=== PATIENT | female | born 2000 | race Two or more races ===

== ENCOUNTER → 2024-04-13 | Outpatient (CLI) | payer OTHER | END | disposition home or self-care (01) | LOC: PRENATAL 12:42 | PROVIDERS: ATTEND Obstetrics & Gynecology Maternal & Fetal Medicine | DX: O35.9XX0 Maternal care for (suspected) fetal abnormality and damage, unspecified, not applicable or unspecified (principal); O35.3XX0 Maternal care for (suspected) damage to fetus from viral disease in mother, not applicable or unspecified; O44.02 Complete placenta previa NOS or without hemorrhage, second trimester; O99.891 Other specified diseases and conditions complicating pregnancy; Z3A.20 20 weeks gestation of pregnancy ==

== ENCOUNTER 2024-05-10 17:46 | Inpatient (IN) | payer OTHER ==
[~2024-05-10] VITALS: Ht 170.2 cm; Wt 94.3 kg
[2024-05-10] MEDS ORDERED: ACETAMINOPHEN 500 MG GEL..CAP PO PRN (18:30)
[2024-05-10] MEDS ORDERED: RINGERS SOLUTION,LACTATED 1,000 ML IV SCH (18:30)
[2024-05-10 18:47] LABS: URINE APPEARANCE Clear; URINE BILIRRUBIN Small (NEGATIVE); URINE BLOOD Negative; URINE COLOR Dark Yellow; URINE GLUCOSE Negative (NEGATIVE); URINE KETONE 15 (NEGATIVE); URINE LEUKOCYTE Trace; URINE NITRATE Negative
[2024-05-10 18:48] LABS: URINE BACTERIA 1320.3 uL (0.0-1933); URINE EPITHELIAL CELLS 18.2 uL (0.0-38.8); URINE RBC 7.6 uL (0.0-20.8); URINE WBC 34.1 uL (0.0-23.2)
[2024-05-10 18:52] LABS: URINE PROTEIN 100 (NEGATIVE)
[2024-05-10] MEDS ORDERED: PRENATAL + DHA1 EAC1 PO (19:02)
[2024-05-10 19:08] LABS: PLATELET COUNT 237 K/uL (150-450); RED BLOOD COUNT 2.74 M/uL (4.00-6.00)
[2024-05-10 19:10] LABS: MEAN CORPUSCULAR HEMOGLOBIN 28.1 pg (27.00-32.0); RED CELL DISTRIBUTION WIDTH 25.8 % (11.5-14.5)
[2024-05-10 19:17] LABS: ALBUMIN 3.7 gm/dL (3.4-5.0); BILIRUBIN TOTAL 4.65 mg/dL (0.3-1.2); CALCIUM 9.3 mg/dL (8.5-10.1); CREATININE SERUM 0.49 mg/dL (0.55-1.02); GFR 153.88; GLOBULINA 3.4 G/DL (2.4-3.5); HEMATOCRIT 20.8 % (36.0-45.00); HEMOGLOBIN 7.7 g/dL (12.0-15.00); POTASSIUM 3.37 mEq/L (3.5-5.1); TOTAL PROTEIN 7.1 gm/dL (6.4-8.2)
[2024-05-10] MEDS ORDERED: SODIUM CHLORIDE 0.45 % 1,000 ML IV SCH (20:30)
[2024-05-11 07:38] LABS: MEAN CELL VOLUME 74.1 fL (80.00-100.00); MEAN CORPUSCULAR HGB CONC 37.4 g/dl (32.0-36.0); PLATELET COUNT 209 K/uL (150-450); RED BLOOD COUNT 2.44 M/uL (4.00-6.00)
[2024-05-11 07:48] LABS: MEAN CORPUSCULAR HEMOGLOBIN 27.8 pg (27.00-32.0); RED CELL DISTRIBUTION WIDTH 26.1 % (11.5-14.5)
[2024-05-11 07:52] LABS: HEMATOCRIT 18.1 % (36.0-45.00); HEMOGLOBIN 6.8 g/dL (12.0-15.00)
[2024-05-11 08:03] LABS: ALBUMIN 3.2 gm/dL (3.4-5.0); BILIRUBIN TOTAL 3.77 mg/dL (0.3-1.2); CALCIUM 8.6 mg/dL (8.5-10.1); GFR 281.86; GLOBULINA 3.2 G/DL (2.4-3.5); POTASSIUM 3.1 mEq/L (3.5-5.1); TOTAL PROTEIN 6.4 gm/dL (6.4-8.2)
[2024-05-11 08:04] LABS: CREATININE SERUM 0.29 mg/dL (0.55-1.02)
[2024-05-11] MEDS ORDERED: PAXLOVID PO SCH (09:00)
[2024-05-11] MEDS ORDERED: PNV,CALCIUM 72/IRON/FOLIC ACID 1 TAB TABLET PO SCH (09:00)
[2024-05-11] MEDS ORDERED: IRON/V.C/V.B12/FOLIC A/VIT. E 1 CAPL CAPLET PO SCH (09:00)
[2024-05-12 05:17] LABS: HEMATOCRIT 27.3 % (36.0-45.00); MEAN CELL VOLUME 77.9 fL (80.00-100.00); MEAN CORPUSCULAR HEMOGLOBIN 28.4 pg (27.00-32.0); MEAN CORPUSCULAR HGB CONC 36.7 g/dl (32.0-36.0); PLATELET COUNT 257 K/uL (150-450); RED BLOOD COUNT 3.51 M/uL (4.00-6.00); RED CELL DISTRIBUTION WIDTH 24.2 % (11.5-14.5)
== END 2024-05-12 16:52 | disposition home or self-care (01) | DRG 831 ==
LOC: OBS/DEL 17:46 → LDR 05-11 13:04 → OBS/DEL 05-11 13:04 → LDR 05-12 16:52
PROVIDERS: ADMIT Obstetrics & Gynecology; ATTEND Obstetrics & Gynecology
PROC: 4A1HXCZ Monitoring of Products of Conception, Cardiac Rate, External Approach (ICD-10-PCS; principal; 2024-05-11)
PROC: 30233N1 Transfusion of Nonautologous Red Blood Cells into Peripheral Vein, Percutaneous Approach (ICD-10-PCS; 2024-05-11)
PROC: BY4CZZZ Ultrasonography of Second Trimester, Single Fetus (ICD-10-PCS; 2024-05-11)
DX: O99.012 Anemia complicating pregnancy, second trimester (principal); U07.1 COVID-19; O98.512 Other viral diseases complicating pregnancy, second trimester; D64.9 Anemia, unspecified; Z3A.24 24 weeks gestation of pregnancy; Z86.2 Personal history of diseases of the blood and blood-forming organs and certain disorders involving the immune mechanism

== ENCOUNTER → 2024-06-08 13:49 | Outpatient (CLI) | payer OTHER ==
[~2024-06-08 13:49] MED LIST: PRENATAL + DHA1 EAC1 PO
== END | disposition home or self-care (01) ==
LOC: PRENATAL 13:49
PROVIDERS: ATTEND Obstetrics & Gynecology Maternal & Fetal Medicine
DX: O26.849 Uterine size-date discrepancy, unspecified trimester (principal); O99.891 Other specified diseases and conditions complicating pregnancy; O99.019 Anemia complicating pregnancy, unspecified trimester; Z3A.28 28 weeks gestation of pregnancy

== ENCOUNTER → 2024-07-20 | Outpatient (CLI) | payer OTHER | END | disposition home or self-care (01) | LOC: PRENATAL 13:18 | PROVIDERS: ATTEND Obstetrics & Gynecology Maternal & Fetal Medicine | DX: O26.849 Uterine size-date discrepancy, unspecified trimester (principal); O36.8199 Decreased fetal movements, unspecified trimester, other fetus; O99.891 Other specified diseases and conditions complicating pregnancy; Z3A.34 34 weeks gestation of pregnancy ==

== ENCOUNTER → 2024-07-24 08:08 | Outpatient (CLI) | payer OTHER ==
[2024-07-24 09:34] LABS: HEMATOCRIT 26.2 % (36.0-45.00); HEMOGLOBIN 9.5 g/dL (12.0-15.00); MEAN CORPUSCULAR HEMOGLOBIN 29.4 pg (27.00-32.0); MEAN CORPUSCULAR HGB CONC 36.2 g/dl (32.0-36.0); PLATELET COUNT 289 K/uL (150-450); RED BLOOD COUNT 3.24 M/uL (4.00-6.00); RED CELL DISTRIBUTION WIDTH 24.1 % (11.5-14.5)
[2024-07-24 10:16] LABS: % SATURACION 35.5 % (15-50); ALBUMIN 3.1 gm/dL (3.4-5.0); BILIRUBIN TOTAL 3.55 mg/dL (0.3-1.2); CREATININE SERUM 0.4 mg/dL (0.55-1.02); FERRITIN 30.3 NG/ML (8-252); GFR 194.48; GLOBULINA 3.4 G/DL (2.4-3.5); POTASSIUM 3.73 mEq/L (3.5-5.1); TOTAL PROTEIN 6.5 gm/dL (6.4-8.2)
[2024-07-24 12:18] LABS: FOLIC ACID > 20.00 ng/ml (4.78-20)
[2024-07-26 09:04] LABS: MANUAL PLATELET COUNT 508
[2024-07-26 09:05] LABS: PLATELET ESTIMATE INCREASED (NORMAL)
[2024-07-26 15:10] LABS: hgb a 97.1 % (96.4-98.8); hgb a2 2.1 % (1.8-3.2); hgb f 0.8 % (0.0-2.0); hgb s 0 % (0.0)
== END | disposition home or self-care (01) ==
LOC: LAB 08:08
PROVIDERS: ATTEND Internal Medicine Hematology & Oncology
DX: D50.0 Iron deficiency anemia secondary to blood loss (chronic) (principal); O00.01 Abdominal pregnancy with intrauterine pregnancy; D50.8 Other iron deficiency anemias; I10 Essential (primary) hypertension; R74.02 Elevation of levels of lactic acid dehydrogenase [LDH]; K76.89 Other specified diseases of liver; D55.0 Anemia due to glucose-6-phosphate dehydrogenase [G6PD] deficiency

== ENCOUNTER 2024-08-24 13:15 | Inpatient (IN) | payer OTHER ==
[~2024-08-24] VITALS: Ht 170.2 cm; Wt 102.1 kg
[2024-08-28 06:10] VITALS: BP 136/70
[2024-08-28 06:39] VITALS: BP 136/70
[2024-08-28 07:42] VITALS: BP 123/64
[2024-08-28 07:42] LABS: HEMATOCRIT 27.6 % (36.0-45.00); MEAN CORPUSCULAR HEMOGLOBIN 29.3 pg (27.00-32.0); MEAN CORPUSCULAR HGB CONC 36.2 g/dl (32.0-36.0); PLATELET COUNT 290 K/uL (150-450); RED BLOOD COUNT 3.41 M/uL (4.00-6.00); RED CELL DISTRIBUTION WIDTH 24.2 % (11.5-14.5)
[2024-08-28 07:58] LABS: PH,URINE 6.5 (5.0-8.0); URINE APPEARANCE Clear; URINE BILIRRUBIN Small (NEGATIVE); URINE BLOOD Negative; URINE COLOR Dark Yellow; URINE GLUCOSE Negative (NEGATIVE); URINE KETONE Negative (NEGATIVE); URINE LEUKOCYTE Small; URINE NITRATE Negative; URINE PROTEIN Trace (NEGATIVE)
[2024-08-28 08:03] LABS: URINE BACTERIA 5338.5 uL (0.0-1933); URINE EPITHELIAL CELLS 40.5 uL (0.0-38.8); URINE RBC 11.7 uL (0.0-20.8)
[2024-08-28 08:15] LABS: PARTIAL THROMBOPLASTIN TIME 25.6 SECONDS (22.0-34.0); PROTHROMBIN TIME 10.9 SECONDS (9.0-11.5)
[2024-08-28 08:23] LABS: ALBUMIN 3.2 gm/dL (3.4-5.0); BILIRUBIN TOTAL 4.01 mg/dL (0.3-1.2); CALCIUM 9.3 mg/dL (8.5-10.1); CREATININE SERUM 0.39 mg/dL (0.55-1.02); GFR 198.66; GLOBULINA 3.4 G/DL (2.4-3.5); POTASSIUM 3.81 mEq/L (3.5-5.1); TOTAL PROTEIN 6.6 gm/dL (6.4-8.2)
[2024-08-28 08:37] LABS: URINE CAST 1.22 uL (0.0-1.40)
[2024-08-28] MEDS ORDERED: MISOPROSTOL 50 MCG TABLET VAG ONE (08:45)
[2024-08-28] MEDS ORDERED: MORPHINE SULFATE 4 MG/ML VIAL IV ONE ×3 (10:05→22:35)
[2024-08-28] MEDS ORDERED: MEPERIDINE HCL/PF 25 MG/ML VIAL IV ONE (12:30)
[2024-08-28] MEDS ORDERED: PROMETHAZINE HCL 25 MG/ML AMPUL IV ONE (12:30)
[2024-08-28] MEDS ORDERED: OXYTOCIN 1,000 ML IV SCH ×2 (12:30→21:45)
[2024-08-28 12:52] VITALS: BP 124/74
[2024-08-28 15:27] VITALS: BP 139/50
[2024-08-28] MEDS ORDERED: CEFAZOLIN SODIUM 1,000 MG VIAL IV SCH (18:30)
[2024-08-28] MEDS ORDERED: ERYTHROMYCIN BASE OPHT 1GM EACH TUBE OP ONE (20:45)
[2024-08-28] MEDS ORDERED: OXYTOCIN 10 UNITS/ML VIAL IV ONE (20:45)
[2024-08-28] MEDS ORDERED: KETOROLAC TROMETHAMINE 30 MG VIAL IV NR (21:45)
[2024-08-28] MEDS ORDERED: RINGERS SOLUTION,LACTATED 1,000 ML IV SCH (21:45)
[2024-08-28] MEDS ORDERED: ONDANSETRON HCL 2 MG/ML VIAL IV PRN (21:45)
[2024-08-28] MEDS ORDERED: MORPHINE SULFATE 4 MG/ML CARTRIDGE IV PRN (21:45)
[2024-08-29] MEDS ORDERED: ACETAMINOPHEN 325 MG TABLET PO SCH
[2024-08-29] MEDS ORDERED: KETOROLAC TROMETHAMINE 30 MG VIAL IV SCH
[2024-08-29 02:15] VITALS: BP 124/74
[2024-08-29] MEDS ORDERED: OxyCODONE HCL 5 MG TABLET (ROXICODONE) PO PRN (06:00)
[2024-08-29 07:02] LABS: HEMATOCRIT 24.4 % (36.0-45.00); MEAN CELL VOLUME 81.7 fL (80.00-100.00); MEAN CORPUSCULAR HGB CONC 34.8 g/dl (32.0-36.0); PLATELET COUNT 278 K/uL (150-450); RED BLOOD COUNT 2.98 M/uL (4.00-6.00); RED CELL DISTRIBUTION WIDTH 24.6 % (11.5-14.5)
[2024-08-29 07:06] LABS: HEMOGLOBIN 8.5 g/dL (12.0-15.00); MEAN CORPUSCULAR HEMOGLOBIN 28.5 pg (27.00-32.0)
[2024-08-29 08:17] VITALS: BP 115/71
[2024-08-29] MEDS ORDERED: SIMETHICONE 125 MG CAPSULE PO SCH (09:00)
[2024-08-29] MEDS ORDERED: IBUprofen 400 MG TABLET PO SCH (09:00)
[2024-08-29] MEDS ORDERED: IRON FUM,PS/FOLIC ACID/VITC/B3 1 CAP CAPSULE PO SCH (09:00)
[2024-08-29] MEDS ORDERED: PNV,CALCIUM 72/IRON/FOLIC ACID 1 TAB TABLET PO SCH (09:00)
[2024-08-29 19:58] VITALS: BP 120/82
[2024-08-30] VITALS: BP 106/66
[2024-08-30 08:47] VITALS: BP 119/66
== END 2024-08-30 14:28 | disposition home or self-care (01) | DRG 788 ==
LOC: OB/GYN 08-28 05:36 → LDR 08-28 05:36 → OB/GYN 08-28 08:10 → LDR 08-30 13:15 → OB/GYN 08-30 14:28
PROVIDERS: Obstetrics & Gynecology; ADMIT Obstetrics & Gynecology; ATTEND Obstetrics & Gynecology
PROC: 3E033VJ Introduction of Other Hormone into Peripheral Vein, Percutaneous Approach (ICD-10-PCS; 2024-08-28)
PROC: 3E0P7VZ Introduction of Hormone into Female Reproductive, Via Natural or Artificial Opening (ICD-10-PCS; 2024-08-28)
PROC: 4A1HXCZ Monitoring of Products of Conception, Cardiac Rate, External Approach (ICD-10-PCS; 2024-08-28)
PROC: 10D00Z1 Extraction of Products of Conception, Low, Open Approach (ICD-10-PCS; principal; 2024-08-28 18:00)
DX: O82 Encounter for cesarean delivery without indication (principal); O62.1 Secondary uterine inertia; Z86.2 Personal history of diseases of the blood and blood-forming organs and certain disorders involving the immune mechanism; Z37.0 Single live birth; Z3A.39 39 weeks gestation of pregnancy; Z20.822 Contact with and (suspected) exposure to COVID-19